=== PATIENT | female | born 2005 | race Caucasian/White ===

== ENCOUNTER 2024-01-22 13:27 | Emergency (ER) | payer SELFPAY ==
[2024-01-22 14:21] LABS: Absolute Eosinophils 0.1 K/uL (0-0.5); Absolute Lymphocytes (CBC) 2.4 K/uL (0.7-4.9); Absolute Monocytes 0.4 K/uL (0.1-1.3); Absolute Neutrophil 3.5 K/uL (1.8-8.0); Basophils % 0.4 % (0-1.3); Eosinophils % 1.8 % (0-4.4); Hematocrit 41.6 % (36.0-45.0); Hemoglobin 14.1 g/dL (12.0-15.0); Lymphocytes % 37.3 % (15.3-44.8); MCH 29.6 pg (27.0-35.0); MCHC 33.9 g/dL (32.0-36.0); MCV 87.3 fL (80-100); MPV 8.3 fL (7.6-11.3); Monocytes % 6.3 % (3.3-12.3); Neutrophils % 54.2 % (41.7-73.7); Platelets 273 thou/uL (152-406); RBC Red Blood Cell Count 4.77 M/uL (3.86-4.86); Red Cell Distribution Width 14.1 % (12.1-15.2)
[2024-01-22 14:25] LABS: PT Prothrombin Time 11.8 SECONDS (9.4-12.5); Protime INR 1.06
[2024-01-22 14:32] LABS: Specific Gravity < 1.005 (1.005-1.030); Sqamous Epithelial <5 /HPF (None Seen); Urine Bacteria <20 /HPF (<20); Urine Bilirubin NEGATIVE (Negative); Urine Blood 1+ (Negative); Urine Clarity Turbid (Clear); Urine Color Colorless (Yellow); Urine Crystals Unidentified Few /HPF (None Seen); Urine Culture Reflex Order NOT NEEDED; Urine Glucose NEGATIVE (Negative); Urine Ketones NEGATIVE (Negative); Urine Micro Reflex YN NO BILL MICROSCOPIC; Urine Nitrite NEGATIVE (Negative); Urine Protein NEGATIVE (Negative); Urine RBC <5 /HPF (None Seen); Urine Urobilinogen Normal (Normal); Urine WBC <5 /HPF (<5); Urine WBC Clump Rare /HPF (None Seen); Urine Yeast (Budding) Trace /HPF (None Seen)
[2024-01-22 14:52] LABS: AST/SGOT 12 U/L (15-37); Alkaline Phosphatase 90 U/L (45-117); Anion Gap 8.7 mEq/L (5.0-15.0); BUN Blood Urea Nitrogen 7 mg/dL (7-18); Bicarbonate 25 mEq/L (21-32); Bilirubin Direct 0.2 mg/dL (0-0.2); Bilirubin Indirect, Calculated 0.3 mg/dL (0.2-0.8); Bilirubin Total 0.5 mg/dL (0.2-1.0); Glomerular Filtration Rate 130 ml/min (=/>90); Glucose Level 103 mg/dL (74-106); Magnesium 1.9 mg/dL (1.6-2.4); Potassium 3.7 mEq/L (3.5-5.1); Sodium Level 139 mEq/L (136-145); Troponin High Sensitivity 3.9 pg/mL (<58.9)
[2024-01-22 14:58] LABS: ALT/SGPT < 14 U/L (13-56)
--- NOTE | 2024-01-22 15:45 | RAD REPORT ---
EXAMINATION: ONE VIEW CHEST XR CLINICAL INDICATION: syncope TECHNIQUE: Frontal chest projection is submitted. Examination is limited by patient positioning and t echnique. COMPARISON: 12/19/2023 FINDINGS: The lungs are well inflated and clear. The heart is normal in size. No displaced fractures identified . IMPRESSION: No acute intrathoracic abnormalities.
--- NOTE | 2024-01-22 15:47 | RAD REPORT ---
EXAM: CT brain without contrast HISTORY: SYNCOPE COMPARISON: None TECHNIQUE: Multiple contiguous axial images were obtained and a CT of the brain without contrast. Sag ittal and coronal reformats were performed. One or more of the following dose reduction techniques were used: Automated exposure control, adjust ment of the mA and/or kV according to patient size, and/or iterative reconstruction. FINDINGS: No evidence of hydrocephalus, intracranial hemorrhage, or extra-axial fluid collection. The brain is normal in morphology. No evidence of midline shift or areas of brain edema. The calvarium is intact. The visualized paranasal sinuses and mastoid air cells are essentially clear . IMPRESSION: No evidence of acute intracranial abnormality.
[2024-01-22] MEDS ORDERED: ACETAMINOPHEN 325 MG TABLET ONE (16:36)
--- NOTE | 2024-01-22 16:37 | EDPHYS ---
Physician Documentation [facility] Name: Robby Cool Age: 18 yrs Sex: Female : 2005 Arrival Date: 01/22/2024 Time: 13:27 Bed 17 Private MD: ED Physician Camron Mallory HPI: 01/21 14:00 This 18 yrs old Female presents to ER via Wheelchair with complaints of Passed Out cp Prior To Arrival, Headache - shakiness. 14:00 The patient has experienced syncope, lost consciousness. Duration: This was a single cp episode, that lasted an unknown period of time, unwitnessed. Associated injury: The patient did not suffer any apparent associated injury. 14:00 Associated signs and symptoms: Pertinent positives: dizziness, lightheadedness, now cp with headache and tremulous. 14:00 Patient reports syncopal episode while cleaning under bed about 45 minutes prior to cp arrival. Unwitnessed and patient denies any injuries. Unsure length of time patient lost consciousness. Historical: - Allergies: 13:34 No Known Allergies; ll1 - PMHx: 13:34 iron deficiency anemia; ll1 - Immunization history:: Adult Immunizations up to date. - Infectious Disease History:: Denies. - Social history:: Smoking status: Patient denies any tobacco usage or history of. ROS: 14:05 Constitutional: Negative for body aches, chills, fever, poor PO intake, cp 14:05 Eyes: Negative for injury, pain, redness, and discharge, cp 14:05 ENT: Negative for drainage from ear(s), ear pain, sore throat, difficulty swallowing, difficulty handling secretions, 14:05 Cardiovascular: Negative for chest pain, edema, palpitations, 14:05 Respiratory: Negative for cough, shortness of breath, wheezing, 14:05 Abdomen/GI: Negative for abdominal pain, vomiting, diarrhea, constipation, black/tarry stool, rectal bleeding, 14:05 : Negative for urinary symptoms, vaginal bleeding, 14:05 Neuro: Positive for headache, syncope, Negative for altered mental status, 14:05 All other systems are negative, Exam: 14:10 Constitutional: The patient appears in no acute distress, alert, awake, cp non-diaphoretic, non-toxic, well developed, well nourished, 14:10 Head/Face: Normocephalic, atraumatic. cp 14:10 Eyes: Periorbital structures: appear normal, Pupils: equal, round, and reactive to light and accomodation, Extraocular movements: intact throughout, Sclera: no appreciated abnormality, Lids and lashes: appear normal, bilaterally, 14:10 ENT: External ear(s): are unremarkable, Nose: is normal, Mouth: Lips: moist, Oral mucosa: pink and intact, moist, Posterior pharynx: Airway: no evidence of obstruction, patent, 14:10 Neck: C-spine: vertebral tenderness, is not appreciated, crepitus, is not appreciated, ROM/movement: pain, is not appreciated, limited range of motion, is not appreciated, Meningeal signs: are not present, nuchal rigidity, is not appreciated, 14:10 Chest/axilla: Inspection: normal, Palpation: crepitus, is not appreciated, tenderness, is not appreciated, 14:10 Cardiovascular: Rate: normal, Rhythm: regular, Edema: is not appreciated, JVD: is not appreciated, 14:10 Respiratory: the patient does not display signs of respiratory distress, Respirations: normal, no use of accessory muscles, no retractions, labored breathing, is not present, Breath sounds: are clear throughout, no decreased breath sounds, no stridor, no wheezing, 14:10 Abdomen/GI: Inspection: abdomen appears normal, Palpation: abdomen is soft and non-tender, in all quadrants, 14:10 Back: no spinal tenderness, 14:10 Musculoskeletal/extremity: Extremities: all appear grossly normal, with no appreciated pain with palpation, 14:10 Neuro: Orientation: to person, place \T\ time. Mentation: able to follow commands, Cerebellar function: Romberg testing is negative, Motor: moves all fours, no focal deficits, Sensation: no obvious gross deficits, 14:50 ECG was reviewed by the Attending Physician. cp Vital Signs: 13:34 BP 138 / 82; Pulse 85; Resp 16; Temp 97.9; Pulse Ox 100% on R/A; Weight 49.9 kg; Height ll1 5 ft. 0 in. ; Pain 7/10; 14:15 BP 119 / 76 Sitting; Pulse 86; bp 14:17 BP 125 / 83 Standing; Pulse 92; bp 16:42 BP 112 / 74; Pulse 70; Resp 16; Pulse Ox 100% on R/A; mb9 13:34 Body Mass Index 21.48 (49.90 kg, 152.4 cm) - Percentile 47.5 % ll1 13:34 Pain Scale: Adult ll1 MDM: 13:33 Medical Screening Exam initiated cp 16:36 Data reviewed: vital signs, nurses notes, lab test result(s), EKG, radiologic studies, cp CT scan, plain films, and as a result, I will discharge patient. 16:36 Differential Diagnosis: cardiac arrhythmia, GI bleed, vasovagal episode, anemia, cp electrolyte abnormality. I considered the following discharge prescriptions or medication management in the emergency department Medications were administered in the Emergency Department. See MAR. Independent interpretation of the following test(s) in the Emergency Department EKG: See my EKG interpretation above. Counseling: I had a detailed discussion with the patient and/or guardian regarding the historical points, exam findings, and any diagnostic results supporting the discharge/admit diagnosis, lab results, radiology results, to return to the emergency department if symptoms worsen or persist or if there are any questions or concerns that arise at home. 01/21 13:56 Order name: Basic Metabolic Panel; Complete Time: 15:06 01/21 15:06 Interpretation: Normal except: CL 109. 01/21 13:56 Order name: CBC with Diff; Complete Time: 15:06 01/21 15:07 Interpretation: Normal except. 01/21 13:56 Order name: LFT's; Complete Time: 15:06 01/21 13:56 Order name: Magnesium; Complete Time: 15:06 01/21 13:56 Order name: PT-INR; Complete Time: 15:06 01/21 13:56 Order name: Troponin HS; Complete Time: 15:06 01/21 13:56 Order name: Urinalysis W/Microscopic; Complete Time: 15:06 01/21 13:56 Order name: Test, Urine; Complete Time: 15:06 01/21 13:56 Order name: XRAY Chest (1 view); Complete Time: 16:11 01/21 16:11 Interpretation: Report review. 01/21 15:07 Order name: CT Head Brain wo Cont; Complete Time: 16:11 01/21 16:12 Interpretation: Report reviewed. 01/21 13:56 Order name: Cardiac monitoring; Complete Time: 14:37 01/21 13:56 Order name: EKG - Nurse/Tech; Complete Time: 14:48 01/21 13:56 Order name: IV Saline Lock; Complete Time: 14:12 01/21 13:56 Order name: Labs collected and sent; Complete Time: 14:12 01/21 13:56 Order name: O2 Per Protocol; Complete Time: 14:35 01/21 13:56 Order name: O2 Sat Monitoring; Complete Time: 14:35 01/21 13:56 Order name: Orthostatics; Complete Time: 14:19 cp EC:50 Rate is 74 beats/min. Rhythm is regular. MT interval is shortened at 104 msec. QRS cp interval is normal. QT interval is normal. T waves are Inverted in lead aVR. Interpreted by me. Reviewed by me. Administered Medications: 16:41 Drug: Acetaminophen PO 650 mg PO once Route: PO; mb9 16:59 Follow up: Response: No adverse reaction mb9 Disposition Summary: 01/22/24 16:37 Discharge Ordered Notes: Location: Home cp Problem: new cp Symptoms: have improved cp Condition: Stable cp Diagnosis - Syncope cp - Headache cp Followup: cp - With: Alec Bae MD - When: 1 week - Reason: Recheck today's complaints Discharge Instructions: - Discharge Summary Sheet cp - General Headache Without Cause cp - Syncope cp Forms: - Work release form cp - Medication Reconciliation Form cp - Antibiotic Education cp - Prescription Opioid Use cp - Patient Portal Instructions cp - Leadership Thank You Letter cp Prescriptions: - Ibuprofen 800 mg Oral tablet - take 0.5 tablet ORAL route every 8 hours As needed take with food; 30 tablet; cp Refills: 0, Product Selection Permitted - Zofran 4 mg Oral Tablet - take 1 tablet ORAL route every 12 hours As needed; 20 tablet; Refills: 0, cp Product Selection Permitted Signatures: Dispatcher [employer] EDMS Camron Begum PA PA cp Lewis, Lynsay RN RN ll1 Nadine Leavitt RN RN mb9 Corrections: (The following items were deleted from the chart) 15:08 15:08 Head Brain Wo [id number]+CT.RAD.BRZ ordered. EDMS EDMS
--- NOTE | 2024-01-22 16:37 | ER ---
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 Was cleaning under bed and ll1 suddenly got hot and dizzy. Sat down, then passed out. Awoke with VELAZQUEZ, N/V, weak. Just got off a heavy period. Coronavirus screen: Client denies travel out of the [place] in the last 14 days. At this time, the client does not indicate any symptoms associated with coronavirus-19. Ebola Screen: Patient denies travel to an Ebola-affected area in the 21 days before illness onset. Initial Sepsis Screen: Does the patient meet any 2 criteria? No. Patient's initial sepsis screen is negative. Does the patient have a suspected source of infection? No. Patient's initial sepsis screen is negative. Risk Assessment: Do you want to hurt yourself or someone else? Patient reports no desire to harm self or others. Onset of symptoms was January 22, 2024. 13:34 Method Of Arrival: Wheelchair ll1 13:34 Acuity: UNIQUE 3 ll1 Triage Assessment: 13:38 General: Appears uncomfortable, Behavior is calm, cooperative, appropriate for age. ll1 General: Reports fatigue for. Pain: Complains of pain in head Pain currently is 7 out of 10 on a pain scale. Pain began 1 hour ago. Neuro: Reports numbness a syncopal episode weakness. GI: Reports nausea, vomiting. Historical: - Allergies: 13:34 No Known Allergies; ll1 - PMHx: 13:34 iron deficiency anemia; ll1 - Immunization history:: Adult Immunizations up to date. - Infectious Disease History:: Denies. - Social history:: Smoking status: Patient denies any tobacco usage or history of. Screenin:47 [facility] ED Fall Risk Assessment (Adult) History of falling in the last 3 months, mb9 including since admission No falls in past 3 months (0 pts) Confusion or Disorientation No (0 pts) Intoxicated or Sedated No (0 pts) Impaired Gait No (0 pts) Mobility Assist Device Used No (0 pt) Altered Elimination No (0 pt) Score/Fall Risk Level 0 - 2 = Low Risk Oriented to surroundings, Maintained a safe environment, Educated pt \T\ family on fall prevention, incl call for assistance when getting out of bed. Abuse screen: Denies threats or abuse. Nutritional screening: No deficits noted. Tuberculosis screening: No symptoms or risk factors identified. Assessment: 14:47 Reassessment: pt brought back to ER room. mb9 15:00 General: Appears in no apparent distress. Behavior is calm, cooperative. Pain: mb9 Complains of pain in face. Neuro: Gonzalez Agitation-Sedation Scale (RASS): 0 - Alert and Calm Level of Consciousness is awake, alert, obeys commands, Oriented to person, place, time, situation, Appropriate for age Pupils are PERRLA, Reports headache. 15:00 Cardiovascular: Patient's skin is warm and dry. Respiratory: Airway is patent mb9 Respiratory effort is even, unlabored. GI: No signs and/or symptoms were reported involving the gastrointestinal system. : No signs and/or symptoms were reported regarding the genitourinary system. EENT: No signs and/or symptoms were reported regarding the EENT system. Derm: Skin is pink, warm \T\ dry. Musculoskeletal: Range of motion: intact in all extremities. 16:42 Reassessment: No changes from previously documented assessment. Patient and/or family mb9 updated on plan of care and expected duration. Pain level reassessed. Patient is alert, oriented x 3, equal unlabored respirations, skin warm/dry/pink. Vital Signs: 13:34 BP 138 / 82; Pulse 85; Resp 16; Temp 97.9; Pulse Ox 100% on R/A; Weight 49.9 kg; Height ll1 5 ft. 0 in. ; Pain 7/10; 14:15 BP 119 / 76 Sitting; Pulse 86; bp 14:17 BP 125 / 83 Standing; Pulse 92; bp 16:42 BP 112 / 74; Pulse 70; Resp 16; Pulse Ox 100% on R/A; mb9 13:34 Body Mass Index 21.48 (49.90 kg, 152.4 cm) - Percentile 47.5 % ll1 13:34 Pain Scale: Adult ll1 ED Course: 13:30 Patient arrived in ED. ra3 13:33 Camron Begum PA is PHCP. cp 13:33 Camron Mallory MD is Attending Physician. cp 13:37 Triage completed. ll1 13:37 Arm band placed on. ll1 14:12 Basic Metabolic Panel Sent. bc6 14:12 CBC with Diff Sent. bc6 14:12 LFT's Sent. bc6 14:12 Magnesium Sent. bc6 14:12 PT-INR Sent. bc6 14:12 Troponin HS Sent. bc6 14:12 Initial lab(s) drawn, by me, sent to lab. Inserted saline lock: 20 gauge in right bc6 antecubital area, using aseptic technique. Blood collected. Flushed with 10 mL NS. 14:46 Nadine Leavitt, RN is Primary Nurse. mb9 14:47 Placed in gown. Bed in low position. Call light in reach. Side rails up X 1. Provided mb9 Education on: press call light if needing anything. Client placed on continuous cardiac and pulse oximetry monitoring. NIBP monitoring applied. breaker engineer on. 14:47 EKG done, by ED staff, reviewed by Camron MURRAY. mb9 15:20 CT Head Brain wo Cont In Process Unspecified. EDMS 15:31 XRAY Chest (1 view) In Process Unspecified. EDMS 16:35 Alec Bae MD is Referral Physician. cp 16:43 No provider procedures requiring assistance completed. IV discontinued, intact, mb9 bleeding controlled, No redness/swelling at site. Pressure dressing applied. Administered Medications: 16:41 Drug: Acetaminophen PO 650 mg PO once Route: PO; mb9 16:59 Follow up: Response: No adverse reaction mb9 Medication: 14:47 VIS not applicable for this client. mb9 Outcome: 16:37 Discharge ordered by . cp 16:59 Discharged to home ambulatory, with family, mb9 16:59 Condition: stable 16:59 Discharge instructions given to patient, Instructed on discharge instructions, follow up and referral plans. Demonstrated understanding of instructions, follow-up care, medications, Prescriptions given X 2, 16:59 Patient left the ED. mb9 Signatures: Dispatcher [employer] EDMS Camron Begum PA PA cp Peltier, Brian, RN RN bp Lewis, Lynsay, RN RN 1 Nadine Leavitt RN RN mb9 Eunice Fish 6 Lizzy Coombs ra3
[2024-01-22 19:52] VITALS: TEMP 97.9; O2SAT 100
[2024-01-22 19:55] VITALS: BP 112/74
--- NOTE | 2024-01-23 11:52 | EKG ---
Test Date: 2024-01-22 Test Time: 14:44:[address]: MB MEASUREMENT RESULTS: Intervals: Rate: 74 [place]: 104 QRSD: 88 QT: 370 QTc: 410 [place]: P: 58 [place]: 104 QRS: 91 T: 62 INTERPRETIVE STATEMENTS: Sinus rhythm with short [place] Rightward axis Borderline ECG No previous ECG available for comparison Electronically Signed On 01-23-24 11:50:24 CDT by Adolfo Robert
== END 2024-01-22 16:59 | disposition home or self-care (01) ==
LOC: ER 13:27
DX: R55 Syncope and collapse (principal); R51.9 Headache, unspecified
CPT/HCPCS: 36415; 70450; 71045; 80048; 80076; 81001; 81025; 83735; 84484; 85025; 85610; 93005; 99285